=== PATIENT | female | born 2000 | race Two or more races ===

== ENCOUNTER 2024-12-26 11:57 | Emergency (ER) | payer MEDICAID ==
[~2024-12-26] VITALS: Ht 157.5 cm; Wt 42.2 kg
[2024-12-26] MEDS ORDERED: ONDANSETRON HCL/PF 4 MG/2 ML VIAL ONE (12:16)
[2024-12-26] MEDS ORDERED: ACETAMINOPHEN ES 500 MG TABLET ONE (12:16)
[2024-12-26] MEDS: ONDANSETRON HCL/PF 4 MG/2 ML VIAL IVP ONE (12:30)
[2024-12-26] MEDS: ACETAMINOPHEN ES 500 MG TABLET PO ONE (12:30)
[2024-12-26] MEDS: IV NS 0.9% 1,000 ML BAG IV ONE ×2 (12:30→13:30)
[2024-12-26 12:42] LABS: CALCIUM, SERUM 8.9 mg/dL (8.5-10.1); CREATININE 0.5 mg/dL (0.6-1.3); SODIUM SERUM 127.0 mmol/L (136-145); UREA NITROGEN, BLOOD 9.0 mg/dL (7-18)
[2024-12-26 12:51] LABS: PLATELET COUNT (AUTO) 180 K/uL (150-450); RED BLOOD CELL COUNT(AUTO) 4.97 MIL/uL (4.0-5.2); RED CELL DISTRIBUTION WIDTH 14.6 % (11.5-15.0); WHITE BLOOD COUNT (AUTO) 18.0 K/uL (4.3-11.0)
[2024-12-26 12:54] LABS: PREGNANCY TEST SERUM QUAN 1.0 mIU/mL (0-6)
[2024-12-26] MEDS ORDERED: IOHEXOL-300 100 ML VIAL IV ONE (13:35)
[2024-12-26] MEDS ORDERED: CT SWABBABLE VALVE TRANS SET 1 EA INFUS.SET MC ONE (13:35)
[2024-12-26] MEDS ORDERED: IV NS 0.9% 250 ML IV ONE (13:36)
[2024-12-26 13:57] LABS: APPEARANCE,URINE CLEAR (CLEAR); BLOOD, URINE 1+ Ery/uL (NEGATIVE); LEUKOCYTE ESTERASE ,URINE 1+ (NEGATIVE); NITRITE, URINE NEGATIVE (NEGATIVE); UGLUCOSE NEGATIVE (NEGATIVE)
[2024-12-26 14:10] LABS: ADD URINE CULTURE YES
[2024-12-26] MEDS ORDERED: CEFTRIAXONE 1GM BAG (ER ONLY) 1 GM/50 ML PIGGYBACK IV ONE (14:30)
[2024-12-26] MEDS ORDERED: CEFTRIAXONE 1GM BAG (ER ONLY) 50 ML IV ONE (14:55)
[2024-12-26] MEDS ORDERED: CEPH500C2 PO (14:56)
[2024-12-26] MEDS ORDERED: IBUP-1490 PO (14:56)
[2024-12-26] MEDS ORDERED: ONDA4TAB5 PO (14:57)
[2024-12-26 15:52] VITALS: BP 122/69; TEMP 98.5; O2SAT 99
== END 2024-12-26 15:52 | disposition home or self-care (01) ==
LOC: ER 12:31
DX: R11.2 Nausea with vomiting, unspecified (principal); R10.9 Unspecified abdominal pain; R50.9 Fever, unspecified; R10.2 Pelvic and perineal pain
CPT/HCPCS: 99285; 74177; 96374; 76856; 96361; 85025; 80048; 87086; 81001; 36415; 84702; J2405; J7030; J7050; J0696; Q9967